=== PATIENT | male | born 1985 | race Caucasian/White ===

== ENCOUNTER 2022-05-25 08:55 | Outpatient (CLI) | payer OTHER, SELFPAY ==
[2022-05-25 13:13] LABS: Chloride* 104 mmol/L (96-114); Potassium* 4.9 mmol/L (3.6-5.1); Sodium* 140 mmol/L (135-149)
[2022-05-25 13:15] LABS: Cholesterol* 199 mg/dL (90-199); Creatinine* 0.9 mg/dL (0.5-1.5); Estimated Glomerular Filt Rate 114 ml/min
[2022-05-25 13:16] LABS: Alanine Aminotransferase* 24 U/L (4-50); Blood Urea Nitrogen* 17 mg/dL (5-24); Calcium* 9.5 mg/dL (8.4-10.6); Carbon Dioxide* 29 mmol/L (20-32); Glucose* 99 mg/dL (60-115); HDL Cholesterol* 47 mg/dL (>=40); LDL Cholesterol Calculated 119 mg/dL (<100); Triglycerides* 166 mg/dL (40-149)
== END 2022-05-25 08:56 | disposition home or self-care (01) ==
PROVIDERS: PCP Physician Assistant Medical; Visit Provider Family Medicine
DX: Z00.00 Encounter for general adult medical examination without abnormal findings (principal); R42 Dizziness and giddiness; Z13.6 Encounter for screening for cardiovascular disorders
CPT/HCPCS: 80048; 80061; 84443; 84460

== ENCOUNTER 2022-12-03 19:31 | Outpatient (CLI) | payer BC, SELFPAY ==
--- NOTE | 2022-12-08 13:00 | W.PM.SLEEP ---
Sleep Study Details Details Interpreting Provider: Serafin Quintana MD Date of Sleep Study: 12/03/22 Sleep Study Details: STUDY TYPE:? Home ? BMI:? 34.5 ORDERING PROVIDER:? Brandy INDICATION:? Concerns about sleep apnea ? SLEEP SUMMARY:? Foreign 59.9 minutes monitored RESPIRATORY SUMMARY:? AHI 15.8, supine 18.8, left lateral 11.1 Low oxygen 83% 2% of study oxygen less than 90% Snoring 11.3% PERIODIC LIMB MOVEMENTS OF SLEEP:? Not recorded CARDIAC:? Range 59-97, mean 70 beats per minute IMPRESSION:? 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 RECOMMENDATION: Treatment options include AutoSet CPAP pressure 4-17 versus dental appliance.
== END 2022-12-03 19:32 | disposition home or self-care (01) ==
LOC: SLEEP 19:31
PROVIDERS: PCP Family Medicine; Visit Provider Family Medicine
DX: G47.33 Obstructive sleep apnea (adult) (pediatric) (principal)
CPT/HCPCS: 95806

== ENCOUNTER 2023-06-11 13:31 | Outpatient (CLI) | payer BC, SELFPAY | END 2023-06-11 13:32 | disposition home or self-care (01) | PROVIDERS: PCP Family Medicine; Visit Provider Family Medicine | DX: Z00.00 Encounter for general adult medical examination without abnormal findings (principal); F41.9 Anxiety disorder, unspecified; Z13.6 Encounter for screening for cardiovascular disorders | CPT/HCPCS: 80048; 80061 ==

== ENCOUNTER 2024-07-11 16:00 | Outpatient (CLI) | payer BC, SELFPAY ==
--- OUTSIDE RECORDS SUMMARY | 2024-07-11 16:03 | XMS_ITS | Clinical Summary ---
Author Organization [employer] [facility] Address [place], [place] [address] Care Team Providers Care Family Support Coordinator Name Role Phone [facility] Primary Care Provider Allergies No known active allergies Medications Medication Sig Dispensed Refills Start Date End Date Status nicotine (NICORETTE) 4 mg gum Take 1 Each by mouth every hour if needed for Nicotine Craving. 0 10/19/2013 Active medication order composer Takes various OTC acid reflux medications and Tums PRN 0 10/19/2013 Active Active Problems Problem Noted Date Diagnosed Date Helicobacter pylori infection 11/19/2014 Extremity numbness 11/15/2014 Vitamin D deficiency 11/15/2014 Overview: Nov 2014: 19 vitamin D. GERD (gastroesophageal reflux disease) 5 Immunizations Name Administration Dates Next Due Tdap 05/02/2013 Family History Medical History Relation Name Comments Other Father Tumor from Spin e, non-cancer Cancer-breast Mother Cancer-breast Paternal Grandmother Relation Name Status Comments Father Mother Paternal Grandmother Social History Tobacco Use Types Packs/Day Years Used Date Smoking Tobacco: Former Cigarettes 1 11 0 07/09/2002 - 07/09/2013 Smokeless Tobacco: Never Comments:e-cig occ. Alcohol Use Standard Drinks/Week Comments Yes 1.7 (1 standard drink = 0.6 oz p ure alcohol) Sex and Gender Information Value Date Recorded Sex Assigned at Not on file Gender Identity Not on file Sexual Orientation Not on file Obstetrics History Last Filed Vital Signs Vital Sign Reading Time Taken Comments Blood Pressure 130/80 12/24/2016 2:00 PM [employer]IOR [employer] Pulse 88 12/24/2016 2:00 PM [employer]IOR [employer] Temperature 36.7 ??C (98.1 ??F) 12/24/2016 2:00 PM CS T Respiratory Rate 15 07/30/2009 11:4 9 AM CDT Oxygen Saturation 95% 10/24/2014 3:14 PM [employer] Inhaled Oxygen Concentration - - Weight 102.3 kg (225 lb 9.6 oz) 12/24/2016 2:00 PM [employer]IOR [employer] Height 172.7 cm (5' 8) 11/13/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 Body Mass Index 34.3 11/13/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 Plan of Treatment Health Maintenance Due Date Last Done Comments Depression screening for age 12+ 1998 HIV for age 15-65 2001 BMI (ht and wt on same day) for age 18+ 2004 Hepatitis C screening for ag e 18-79 2004 Lipids for age 35-44 2021 10/19/2013 Tetanus booster 05/02/2023 05/02/2013 COVID-19 vaccine series (2022-24 season) 2023 Influenza for age 9-49 07/09/2024 Tdap Completed 05/02/2013 Pneumococcal series for age 6-64 Aged Out No longer eligible based on patient's age to complete this topic Procedures Procedure Name Priority Date/Time Associated Diagnosis Comments LIPID PANEL W REFLEX MEASURED LDL Routine 10/19/2013 8:14 AM SENIOR INDUSTRIAL ENGINEER Screening for lipoid disorders from Last 3 Months or Most Recently Relevant to Health Maintenance Results * (ABNORMAL) LIPID PANEL W REFLEX MEASURED LDL (10/19/2013 8:14 AM SENIOR INDUSTRIAL ENGINEER) CHOLESTEROL,TOTA L 200(H) 100 - 199 mg/dL [facility] TRIGLYCERIDES 103 <150 mg/dL [facility] HDL CHOLESTEROL 41 >40 mg/dL [facility] CHOL/HDL RATIO 4.88(H) <4.50 [facility] NON-HDL CHOLESTEROL 159 Undefined mg/dL [facility] LDL CHOLESTEROL 138(H) <131 mg/dL [facility] PATIENT STATUS Fasting [facility] Blood specimen (specimen) BLOOD SPECIMEN / Unknown 10/19/2013 8:14 AM SENIOR INDUSTRIAL ENGINEER 10/19/2013 8:09 AM SENIOR INDUSTRIAL ENGINEER Tobias Sherwood MD CHEMISTRY [facility] [place] ZIP [id number] [address] from Last 3 Months or Most Recently Relevant to Health Maintenance Care Teams Family Support Coordinator Relationship Specialty Start Date End Date [facility] [address] [place] [address] PCP - General 07/08/16
== END 2024-07-11 16:01 | disposition home or self-care (01) ==
PROVIDERS: PCP Family Medicine; Visit Provider Family Medicine
DX: R42 Dizziness and giddiness (principal); Z13.220 Encounter for screening for lipoid disorders
CPT/HCPCS: 80048; 80061; 84443; 85025

== ENCOUNTER 2025-08-14 14:06 | Outpatient (CLI) | payer BC, SELFPAY | END 2025-08-14 14:07 | disposition home or self-care (01) | PROVIDERS: PCP Family Medicine; Visit Provider Family Medicine | DX: Z00.00 Encounter for general adult medical examination without abnormal findings (principal) | CPT/HCPCS: 80048; 80061 ==